=== PATIENT | male | born 1950 | race Caucasian/White ===

== ENCOUNTER → 2017-12-11 09:34 | Outpatient (CLI) | payer MEDICARE, BC ==
[~2017-12-11 09:34] MED LIST: BAYER CHEWABLE81 MG PO; LISINOPRIL5 MG PO; MEDROL DOSE PACK4 MG PO; MULTI-DAY VITAM1 TAB PO; OMEGA 3-6-9; PRAVACHOL20 MG PO; VITAMIN C WIT1000 MG PO; VITAMIN D5000 UNIT PO
[2017-12-24 19:24] VITALS: BMI 25.8
== END | disposition home or self-care (01) ==
LOC: D.MRI 09:34 → EDSEX 10:00 → D.MRI 10:00
DX: M62.81 Muscle weakness (generalized) (principal)

== ENCOUNTER 2017-12-24 10:47 | Day surgery (SDC) | payer MEDICARE, BC ==
[~2017-12-24] VITALS: Ht 172.7 cm; Wt 74.1 kg
[2017-12-24] VITALS (11 sets, daily range): BP systolic 132–155; BP diastolic 68–87; Ht 172.7 cm; Wt 74.1 kg
--- NOTE | ~2017-12-24 | OP ---
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 PROCEDURE: Anterior cervical discectomy and fusion with Zavation anterior cervical plate and screws, PEEK interbody cage Biocell stem cell bone implant, separate 60 mm Zavation anterior cervical plate at C7-T1, Zavation anterior cervical plate 8 mm PEEK interbody cage with 60 mm plate, screws 18 mm in length, removal of osteophytes at C5-C6 and C7-T1. SURGEON: Surendra Vo MD DESCRIPTION OF TECHNIQUE: After induction of general endotracheal anesthesia, the patient was positioned supine on the operating table. Neck was prepped and draped in usual sterile fashion. Fluoroscopic x-ray and spinal needle localized the C5-C6 and C7-T1 interspaces. The longus colli muscles were elevated from bodies of C5-C6 and C7-T1. The osteophytes were removed anteriorly with Adson rongeurs. Vernon distracting pins were placed by the C5-C6 and C7-T1 at each level. The disk space was incised with #11 blade. The series of pituitary rongeurs and curettes were used to remove the disc material and prepare the endplates. A microscope and Midas Hira drill were used to remove osteophytes posteriorly with Midas-Hira drill. The posterior longitudinal ligament was removed with Cloward rongeurs. Following this, the dura was decompressed well. Foraminotomies were carried out bilaterally at C5-C6 and C7-T1. A PEEK interbody cage was placed in the disc space under distraction each level. Prior to this was filled with a Biocell bone stem cell allograft. Next, a separate anterior cervical plate was used to span C5-C6 and C7-T1 interspaces. The 18-mm screws were placed in the holes and plate. Locking cams were tightened down over the screw heads. Meticulous hemostasis was maintained throughout the wound. Wound was irrigated with copious amounts of Ancef irrigant solution. The platysma and subdermal layer closed with interrupted 3-0 Vicryl suture. The skin was reapproximated with Steri-Strips and benzoin. A sterile dressing was applied to the wound. The patient was awakened in good condition and taken to recovery. All counts were reported as correct. Estimated blood loss was minimal. TRANSINT:[id number] Voice Confirmation ID: [id number] DOCUMENT ID: [id number] SURENDRA VO MD at 1607 CC: [id number] DICTATION DATE: 12/25/17 1326 SLICING MACHINE TENDER: 12/25/17 1354 [facility] [place] 12/25/17 [place] [id number]
[2017-12-24] MEDS ORDERED: LISINOPRIL5 MG PO (11:28)
[2017-12-24] MEDS ORDERED: PRAVACHOL20 MG PO (11:28)
[2017-12-24] MEDS ORDERED: VITAMIN D5000 UNIT PO (11:28)
[2017-12-24] MEDS ORDERED: VITAMIN C WIT1000 MG PO (11:29)
[2017-12-24] MEDS ORDERED: MULTI-DAY VITAM1 TAB PO (11:29)
[2017-12-24] MEDS ORDERED: BAYER CHEWABLE81 MG PO (11:30)
[2017-12-24] MEDS ORDERED: OMEGA 3-6-9 (11:30)
[2017-12-24 13:19] LABS: HEMATOCRIT 42.2 % (42.0-54.0); HEMOGLOBIN 14.5 g/dL (13.5-17.5); MCHC 34.4 g/dL (31.0-37.0); MCV 87.4 fL (80.0-100.0); MEAN PLATELET VOLUME 10.3 fL (7.4-10.4); RBC 4.83 10x6/uL (4.20-6.10); RDW 12.5 % (11.5-14.5); WBC 8.1 10x3/uL (4.8-10.8)
[2017-12-25] VITALS (9 sets, daily range): BP systolic 128–150; BP diastolic 74–87
[2017-12-25] MEDS ORDERED: MEDROL DOSE PACK4 MG PO (10:18)
== END 2017-12-25 11:06 | disposition home or self-care (01) ==
LOC: D.ICU 10:47 → D.OPS 10:47 → D.SDCHOLD 10:47 → D.ICU 10:47 → D.SDCHOLD 13:10 → EDSTATUS 13:10 → D.ICU 17:30 → D.SDCHOLD 17:30 → D.ICU 17:30 → D.OPS 12-25 11:06
PROVIDERS: Anesthesiology; Neurological Surgery
PROC: 0RB30ZZ Excision of Cervical Vertebral Disc, Open Approach (ICD-10-PCS; 2017-12-24)
PROC: 0RG10A0 Fusion of Cervical Vertebral Joint with Interbody Fusion Device, Anterior Approach, Anterior Column, Open Approach (ICD-10-PCS; principal; 2017-12-24 13:15)
PROC: 0RG10K0 Fusion of Cervical Vertebral Joint with Nonautologous Tissue Substitute, Anterior Approach, Anterior Column, Open Approach (ICD-10-PCS; 2017-12-24 13:15)
DX: G54.2 Cervical root disorders, not elsewhere classified (principal); M25.78 Osteophyte, vertebrae; Z01.812 Encounter for preprocedural laboratory examination